=== PATIENT | male | born 1985 | race African-American/Black ===

== ENCOUNTER 2018-11-29 16:08 | Emergency (ER) | payer MEDICAID, OTHER ==
[~2018-11-29] VITALS: Ht 172.7 cm; Wt 66.0 kg
[2018-11-29 19:31] LABS: CLARITY URINE CLEAR (CLEAR); COLOR URINE YELLOW (YELLOW); KETONES URINE 1+ (NEGATIVE); LEUKOCYTE ESTERASE URINE NEGATIVE (NEGATIVE); NITRITE URINE NEGATIVE (NEGATIVE); OCCULT BLOOD URINE NEGATIVE (NEGATIVE); PH URINE 5.5 (4.5-8.0); PROTEIN URINE NEGATIVE (NEGATIVE); SPECIFIC GRAVITY URINE 1.026 (1.005-1.030); UROBILINOGEN URINE 0.2 E.U./dL (0.2-1.0)
[2018-11-29] MEDS ORDERED: HYDROCODONE/ACETAMINOPHEN 5/325MG TABLET PO ONE (20:15)
[2018-11-29] MEDS ORDERED: ACETAMINOPHEN 325MG TABLET PO ONE (20:15)
[2018-11-29 21:43] VITALS: BP 119/70
== END 2018-11-29 22:24 | disposition home or self-care (01) ==
LOC: ER 16:54
DX: N43.3 Hydrocele, unspecified (principal); I86.1 Scrotal varices; N45.4 Abscess of epididymis or testis; F17.200 Nicotine dependence, unspecified, uncomplicated; Z98.890 Other specified postprocedural states
CPT/HCPCS: 76870; 93976; 99284

== ENCOUNTER 2018-12-14 21:38 | Emergency (ER) | payer MEDICAID, OTHER ==
[~2018-12-14] VITALS: Ht 172.7 cm; Wt 66.0 kg
[2018-12-15] MEDS ORDERED: KETOROLAC 60MG/2ML VIAL IM STA (01:36)
[2018-12-15 02:39] LABS: CLARITY URINE CLEAR (CLEAR); COLOR URINE YELLOW (YELLOW); KETONES URINE TRACE (NEGATIVE); LEUKOCYTE ESTERASE URINE NEGATIVE (NEGATIVE); NITRITE URINE NEGATIVE (NEGATIVE); OCCULT BLOOD URINE NEGATIVE (NEGATIVE); PH URINE 5.5 (4.5-8.0); PROTEIN URINE NEGATIVE (NEGATIVE); SPECIFIC GRAVITY URINE 1.029 (1.005-1.030); UROBILINOGEN URINE 0.2 E.U./dL (0.2-1.0)
[2018-12-15] MEDS ORDERED: LIDOCAINE HCL 1% 20ML VIAL (Pyxis) INJ INFIL SCH (05:00)
[2018-12-15] MEDS ORDERED: CEFTRIAXONE SODIUM 250 MG/VIAL IM SCH (05:00)
[2018-12-15 05:35] VITALS: BP 118/72
== END 2018-12-15 05:37 | disposition home or self-care (01) ==
LOC: ER 21:38
DX: N45.2 Orchitis (principal)
CPT/HCPCS: 76870; 81003; 93976; 96372; 99284; J0696; J1885; J3490

== ENCOUNTER 2019-04-21 15:31 | Emergency (ER) | payer OTHER ==
[~2019-04-21] VITALS: Ht 172.7 cm; Wt 66.0 kg
[2019-04-21] MEDS ORDERED: CEFTRIAXONE SODIUM 250 MG/VIAL IM ONE (21:15)
[2019-04-21] MEDS ORDERED: AZITHROMYCIN 500 MG TABLET PO ONE (21:15)
[2019-04-21] MEDS ORDERED: IBUPROFEN 600MG TABLET PO ONE (21:30)
[2019-04-22 01:45] VITALS: BP 105/61
== END 2019-04-22 01:50 | disposition home or self-care (01) ==
LOC: ER 15:52
DX: L73.8 Other specified follicular disorders (principal); N43.2 Other hydrocele; F17.210 Nicotine dependence, cigarettes, uncomplicated; Z98.890 Other specified postprocedural states
CPT/HCPCS: 76870; 93976; 96372; 99284; J0696

== ENCOUNTER 2021-06-21 20:40 | Emergency (ER) | payer MEDICAID, OTHER ==
[~2021-06-21] VITALS: Ht 172.7 cm; Wt 73.0 kg
[2021-06-22] MEDS ORDERED: ACETAMINOPHEN 325MG TABLET PO ONE (01:45)
[2021-06-22] MEDS ORDERED: IBUPROFEN 600MG TABLET PO ONE (01:45)
[2021-06-22] MEDS ORDERED: CYCLOBENZAPRINE 10MG TABLET PO ONE (01:45)
[2021-06-22] MEDS ORDERED: METH-653 MT (03:48)
[2021-06-22] MEDS ORDERED: NAPR-1176 MT (03:48)
[2021-06-22] MEDS ORDERED: TOPUD MT (03:48)
[2021-06-22 04:00] VITALS: BP 128/78
== END 2021-06-22 04:05 | disposition home or self-care (01) ==
LOC: ER 20:40
DX: M54.50 Low back pain, unspecified (principal)
CPT/HCPCS: 99284